=== PATIENT | male | born 1935 | race Asian ===

== ENCOUNTER 2017-03-29 20:56 | Emergency (ER) | payer SELFPAY ==
[~2017-03-29] VITALS: Ht 160 cm; Wt 54.4 kg
--- NOTE | 2017-03-29 20:56 | NUR ---
82Y M BIBA S/P MECHICAL FALL WHILE AT [employer] WITH FAMILY. PT WAS EXITING [facility] AND FELL; POSTERIOR 1 IN LAC. BLEEDIND CONTROLLED. PT HAS UNKNOWN MEDICAL HX FROM FAMILY. PT VISITING FROM [place]. PT ARRIVED WITH C-COLLAR IN PLACE- 20G TO LEFT AC. BS 83 ON SCENE. PT ONLY RESPOND TO [place] TONGUE WITH FAMILY BUT UNABLE TO RESPOND TO SIMPLE COMMANDS. 2 EMESIS EPISODES IN ER. FAMILY AT AT BEDSIDE TO TRANSLATE. PUPILS EQUAL REACTIVE. GCS 8.
--- NOTE | 2017-03-29 20:56 | NUR ---
Patient BIBA ACLS, triaged by RN. Waiting for an available bed.
--- NOTE | 2017-03-29 20:56 | NUR ---
EMS STATES RIGHT ARM WAS ABLE TO MOVE, NOW RIGHT ARM DOES NOT MOVE, WHEN LIFTING THE RIGHT ARM, THE ARM JUST DROPS.
--- NOTE | 2017-03-29 20:59 | NUR ---
Dr. Trevino evaluating patient at bedside.
--- NOTE | 2017-03-29 20:59 | NUR ---
DR NEVILLE TOOK OFF C-COLLAR WHILE ON [facility].
--- NOTE | 2017-03-29 21:01 | NUR ---
Called [facility].
[2017-03-29 21:04] VITALS: BP 165/109
[2017-03-29] MEDS ORDERED: ONDANSETRON 4 MG/2 ML VIAL IVP ONE (21:10)
--- NOTE | 2017-03-29 21:40 | NUR ---
PT TRANSPORTED BY [facility] TO [facility] VIA AMBULANCE.
--- NOTE | 2017-03-29 21:43 | NUR ---
Patient to be transferred to [facility]. Is being transferred due to HIGHER LEVEL OF CARE . Receiving facility has accepting physician and available space. ER physician has signed transfer form. Patient or responsible alliance party has agreed to transfer and signed form. Patient belongings inventoried and will be sent with patient. Copy of nursing notes, lab reports, EKG, Physicians Orders and X-rays to be sent with patient. Report called to LISHA COATES at receiving facility. [facility] ambulance service has been called for transfer AND HERE AT [place].
[2017-03-29 21:44] VITALS: BP 179/98
== END 2017-03-29 21:43 | disposition short-term general hospital (02) ==
LOC: MED 20:56
DX: S02.91XA Unspecified fracture of skull, initial encounter for closed fracture (principal); S01.01XA Laceration without foreign body of scalp, initial encounter; S06.5X9A Traumatic subdural hemorrhage with loss of consciousness of unspecified duration, initial encounter; I48.91 Unspecified atrial fibrillation; W17.89XA Other fall from one level to another, initial encounter; Y93.F9 Activity, other caregiving; Y92.091 Bathroom in other non-institutional residence as the place of occurrence of the external cause; Y99.8 Other external cause status
CPT/HCPCS: 70450; 72125; 93005; 96374; 99285; J2405